=== PATIENT | female | born 1985 | race Caucasian/White ===

== ENCOUNTER 2016-12-10 06:35 | Inpatient (IN) | payer BC ==
[~2016-12-10] VITALS: Ht 172.7 cm; Wt 118.8 kg
--- NOTE | ~2016-12-10 | FD ---
ADMIT: 12/10/2016 RM/LOC: [address] [facility] MR#: [id number] [address] KATHRYN BROOKS [address] [place] [address] Final Diagnosis SEX: F AGE: 31 : 1985 ADMISSION DATE: 12/10/2016 DISCHARGE DATE: 12/11/2016 FINAL DIAGNOSIS: Intrauterine at term. PROCEDURE: Spontaneous vaginal delivery. Juanita Sherman MD/ nohelia JOB #: [id number] CC: Juanita Sherman MD, Attending Physician FAMILY PHYSICIAN, Family Physician
--- NOTE | ~2016-12-10 | HP ---
ADMIT: 12/10/2016 RM/LOC: 229 [facility] MR#: [id number] [facility] [address], [place] [address] TODDKATHRYN [address] [facility] [place] [address] History and Physical SEX: F AGE: 31 : 1985 DATE OF SERVICE: REASON FOR ADMISSION: Induction of labor. HISTORY OF PRESENT ILLNESS: The patient is a 31-year-old, 4 para 3-0- 0-3, who presents to Labor and Delivery at 39 and 3/7th weeks' gestation for scheduled induction of labor at term. The patient's has been uncomplicated. At time of admission, the patient noted occasional contractions. She denied any vaginal bleeding or loss of fluid. LABORATORY DATA: Blood type O positive, antibody screen negative, gonorrhea and chlamydia negative, HIV negative, hepatitis B surface antigen negative, rubella immune. RPR nonreactive. Quad screen within normal limits. Normal 1 hour glucose tolerance test, and group B strep negative. PAST MEDICAL HISTORY: Noncontributory. PAST SURGICAL HISTORY: Ankle repair in 1997. CURRENT MEDICATIONS: vitamins daily. ALLERGIES: PENICILLIN WHICH CAUSES HIVES AND SULFA WHICH CAUSES HIVES. SOCIAL HISTORY: The patient is . She denies any alcohol, tobacco, or drug use. FAMILY HISTORY: Brother and maternal grandmother with hypertension and son and brother with asthma. PHYSICAL EXAMINATION: VITAL SIGNS: On admission, vital signs are stable. The patient is afebrile. GENERAL: The patient is alert and oriented, no acute distress. HEART: Regular rate and rhythm without murmurs, gallops, or rubs. LUNGS: Clear to auscultation bilaterally. ADMIT: 12/10/2016 RM/LOC: 229 [facility] MR#: [id number] [place] [id number] KATHRYN BROOKS Nichole [address] [place] [address] History and Physical SEX: F AGE: 31 : 1985 ABDOMEN: Soft, nontender, gravid. EXTREMITIES: No edema. No calf tenderness. heart tones are in the 140s with moderate variability and accelerations present. Contractions are irregular. Cervix 4 cm dilated, less than 50% effaced, and -2 station. ASSESSMENT: 1. A 31-year-old, 4 para 3-0-0-3, at 39 and 3/7th weeks' gestation. 2. Scheduled induction of labor at term. We will begin Pitocin and artificial rupture of membranes for induction of labor and we will anticipate a spontaneous vaginal delivery. Juanita Sherman MD/ beto JOB #: [id number] CC: Juanita Sherman, Attending Physician NO FAMILY PHYSICIAN, Family Physician
[2016-12-12] MEDS ORDERED: MOTRIN-DPS800 MG PO (11:09)
[2016-12-12] MEDS ORDERED: PRENATAL VIT1 TAB PO (11:09)
[2016-12-12] MEDS ORDERED: TYLENOL EXTRA500 M1 PO (11:09)
[2016-12-12] MEDS ORDERED: NIPPLECREAM TP (11:10)
--- NOTE | 2017-01-06 09:00 | OR ---
ADMIT: 12/10/2016 RM/LOC: 229 [facility] MR#: [id number] [id number] [address] KATHRYN BROOKS [address] [place] [address] Operative/Delivery Room Report SEX: F AGE: 31 : 1985 SURGERY DATE: 12/10/2016 SURGEON: Juanita Sherman MD PROCEDURE: Spontaneous vaginal delivery. PREOPERATIVE DIAGNOSIS: Intrauterine at 39 and 3/7th weeks' gestation. POSTOPERATIVE DIAGNOSIS: Intrauterine at 39 and 3/7th weeks' gestation. FINDINGS: Liveborn male , scores 8 at 1 minute, 9 at 5 minutes. Weight 9 pounds 2 ounces. ESTIMATED BLOOD LOSS: 200 mL. ANESTHESIA: Local infiltration with 1% lidocaine. COMPLICATIONS: None. INDICATIONS FOR PROCEDURE: The patient is a 31-year-old, 4 para 3-0-0- 3, who presented to Labor and Delivery at 39 and 3/7th weeks' gestation for scheduled induction of labor at term. The patient's had been uncomplicated. Patient received Pitocin for induction of labor and had artificial rupture of membranes performed with return of clear fluid. The patient progressed spontaneously through labor, completely dilated and pushed, bringing the 's vertex to the perineum. DESCRIPTION OF PROCEDURE: The patient was noted to be complete and pushing with the 's vertex at the perineum. The patient pushed and the 's ADMIT: 12/10/2016 RM/LOC: [address] [facility] MR#: [id number] [id number] [address] KATHRYN BROOKS [address] [place] [address] Operative/Delivery Room Report SEX: F AGE: 31 : 1985 vertex delivered in ALISSA position over midline. She continued to push. The anterior shoulder delivered, the posterior shoulder followed, and the remainder of the infant delivered without difficulty as well. The was dried and handed off to mother's abdomen where nursing personnel were in attendance. 20 units Pitocin placed in IV bag to firm the uterus. The cord was clamped and cut. The placenta then delivered intact spontaneously. The cervix was examined and was noted to be free of lacerations. The vaginal vault and perineum were examined, there was noted to be a second-degree midline laceration, which was repaired with 2-0 Vicryl in the usual fashion after local infiltration of 1% lidocaine. The patient tolerated the procedure well. All sponge and needle counts were correct. The patient and recovered in the room in stable condition. Juanita Sherman MD/ beto JOB #: [id number] CC: Juanita Sherman, Attending Physician NO FAMILY PHYSICIAN, Family Physician
== END 2016-12-11 15:10 | disposition home or self-care (01) | DRG 775 ==
LOC: 2LDRP 06:35 → BC 06:35 → 2LDRP 06:54 → BC 12-14 08:00
PROVIDERS: ADMIT Obstetrics & Gynecology
PROC: 3E033VJ Introduction of Other Hormone into Peripheral Vein, Percutaneous Approach (ICD-10-PCS; principal; 2016-12-10)
PROC: 10E0XZZ Delivery of Products of Conception, External Approach (ICD-10-PCS; principal; 2016-12-10)
PROC: 0KQM0ZZ Repair Perineum Muscle, Open Approach (ICD-10-PCS; principal; 2016-12-10)
PROC: 10907ZC Drainage of Amniotic Fluid, Therapeutic from Products of Conception, Via Natural or Artificial Opening (ICD-10-PCS; principal; 2016-12-10)
DX: O70.1 Second degree perineal laceration during delivery (principal); Z37.0 Single live birth; Z3A.39 39 weeks gestation of pregnancy